=== PATIENT | male | born 1945 | race Caucasian/White ===

== ENCOUNTER 2024-07-31 05:24 | Observation (INO) ==
--- NOTE | 2024-06-26 10:52 | PAT Medication Instructions ---
Medication Instructions Date of Service June 26, 2024 Home Medications Metamucil Gummy 1 gummy PO QAM apixaban 5 mg tablet (Eliquis) 5 mg PO QAM arformoterol 15 mcg/2 mL solution for nebulization 15 mcg inhalation [facility] budesonide 0.5 mg/2 mL suspension for nebulization 0.5 mg inhalation BID calcium 600 mg capsule 600 mg PO QAM famotidine 20 mg tablet 20 mg PO QAM folic acid 1 mg tablet 1 mg PO QAM furosemide 20 mg tablet 20 mg PO QAM hydroxychloroquine 200 mg tablet 400 mg PO QAM leflunomide 10 mg tablet 10 mg PO QAM multivitamin 1 tab PO QAM omeprazole 10 mg capsule,delayed release 10 mg PO QAM prednisone 10 mg tablet 10 mg PO QAM pyridoxine (vitamin B6) 100 mg tablet (Vitamin B-6) 100 mg PO QAM rosuvastatin 10 mg tablet 10 mg PO QAM zinc 50 mg tablet 50 mg PO DAILY ASK your prescriber and surgeon apixaban 5 mg tablet (Eliquis) 5 mg PO QAM(in order for spinal or epidural anesthesia, Eliquis needs to be stopped 72 hours/3 days before surgery. Please check if okay with doctor that prescribes this to you) leflunomide 10 mg tablet 10 mg PO QAM DO NOT take the morning of surgery Metamucil Gummy 1 gummy PO QAM calcium 600 mg capsule 600 mg PO QAM folic acid 1 mg tablet 1 mg PO QAM furosemide 20 mg tablet 20 mg PO QAM multivitamin 1 tab PO QAM pyridoxine (vitamin B6) 100 mg tablet (Vitamin B-6) 100 mg PO QAM zinc 50 mg tablet 50 mg PO DAILY Take morning of surgery With a small sip of water, OTHERWISE NOTHING TO EAT OR DRINK AFTER MIDNIGHT: arformoterol 15 mcg/2 mL solution for nebulization 15 mcg inhalation AMHS budesonide 0.5 mg/2 mL suspension for nebulization 0.5 mg inhalation BID famotidine 20 mg tablet 20 mg PO QAM hydroxychloroquine 200 mg tablet 400 mg PO QAM omeprazole 10 mg capsule,delayed release 10 mg PO QAM prednisone 10 mg tablet 10 mg PO QAM rosuvastatin 10 mg tablet 10 mg PO QAM Take evening before surgery arformoterol 15 mcg/2 mL solution for nebulization 15 mcg inhalation AMHS budesonide 0.5 mg/2 mL suspension for nebulization 0.5 mg inhalation BID Other Notes If you have any questions please call us at [phone] or [phone] or [phone] or [phone]
--- NOTE | 2024-07-01 10:58 | Anesthesiology Consultation ---
Date of Service July 01, 2024 Assessment & Plan (1) Encounter for pre-operative examination: - Infectious disease screening: Per assessment on 07/01/24- No known recent infectious disease contacts or current infectious disease symptoms. - Outpatient joint assessment: Pt currently scheduled for inpatient pathway. If surgeon requests review for outpatient joint pathway, patient is not recommended candidate for outpatient joint program from anesthesia standpoint based on available information. - Eliquis/Apixiban instructions: patient made aware that for neuraxial anesthesia, Eliquis/Apixaban needs to be held 72 hours prior to surgery. Patient voiced understanding/will check if okay with prescriber. - Pending: * Awaiting upcoming cardiology office visit ([facility], appt 07/09). * Awaiting surgeon-ordered PCP preop evaluation (Dr. Eri Kirk, appt 07/16). Chart Review Chart Review: Patient seen in Pre Admission Testing Teaching & Discussion Pre-Anesthesia Teaching/Discussion Notes: Instructed NPO after midnight before surgery,except medications with 15 cc of water. Medication instructions provided according to the PAT guidelines. History Surgery Operation Date: 07/31/24 07:00 Proposed Procedures p Right Total Knee Arthroplasty - Seth Clay MD Height/Weight Height: 6 ft Weight: 121.8 kg Allergies Allergy/AdvReac Type Severity Reaction Status Date / Time No Known Allergies Allergy Verified 06/20/24 11:01 Medications Home Medications Medication Instructions Recorded Confirmed Last Taken Metamucil Gummy 1 gummy PO QAM 06/20/24 06/20/24 Unknown apixaban 5 mg tablet (Eliquis) 5 mg PO QAM 06/20/24 06/20/24 Unknown arformoterol 15 mcg/2 mL solution 15 mcg inhalation [facility] 06/20/24 06/20/24 Unknown for nebulization budesonide 0.5 mg/2 mL suspension 0.5 mg inhalation BID 06/20/24 06/20/24 Unknown for nebulization calcium 600 mg capsule 600 mg PO QAM 06/20/24 06/20/24 Unknown famotidine 20 mg tablet 20 mg PO QAM 06/20/24 06/20/24 Unknown folic acid 1 mg tablet 1 mg PO QAM 06/20/24 06/20/24 Unknown furosemide 20 mg tablet 20 mg PO QAM 06/20/24 06/20/24 Unknown hydroxychloroquine 200 mg tablet 400 mg PO QAM 06/20/24 06/20/24 Unknown multivitamin 1 tab PO QAM 06/20/24 06/20/24 Unknown omeprazole 10 mg capsule,delayed 10 mg PO QAM 06/20/24 06/20/24 Unknown release pyridoxine (vitamin B6) 100 mg 100 mg PO QAM 06/20/24 06/20/24 Unknown tablet (Vitamin B-6) rosuvastatin 10 mg tablet 10 mg PO QAM 06/20/24 06/20/24 Unknown zinc 50 mg tablet 50 mg PO DAILY 06/20/24 06/20/24 Unknown Past Medical History Medical History Chronic obstructive pulmonary disease O2 2L HS + PRN (rare daytime use) Follows with Dr. Monroe Villalpando/KARO Jimenez GERD (gastroesophageal reflux disease) History of COVID-19 (2021) Hospitalized for 2 weeks ([facility])- PE, CHF and PNA > Eliquis, subsequent O2 2L HS + PRN History of pulmonary embolism 2021 (in setting of Covid infection) Hyperlipidemia Rheumatoid arthritis Sleep apnea CPAP with 2L O2 HS Exercise / Class Metabolic Activity III < 4 Walking/Shop/Light housework Past Surgical History Surgical History History of cataract surgery R/L History of ear surgery Right ear x4 Follows with ENT [facility], [place] History of tonsillectomy S/P TKR (total knee replacement) (05/01/13) Per records Past Anesthesia History No Hx of Anesthesia Complications and No Family Hx of Anesthesia Complications History of PONV No Hx of PONV and No Hx of Motion Sickness Social History Smoking Status: Former smoker Do You Dip or Chew Tobacco: No Smoking End Date: Quit 2013 Hx Alcohol Use: No Hx Substance Use: No substance use type: does not use Review of Systems Patient denies chest pain, shortness of breath, fever, chills, cough, wheezing, palpitations. Physical Exam Vital Signs BP 113/71 P 75 TEMP 98.2 SP02 95%RA RESP 16 Physical Decreased cervical extension range of motion. Full TMJ range of motion. TMD 3 finger breaths Mallampati Score III Dentition: partial upper, full lower denture Lungs: clear throughout to auscultation Cardiac: regular rate and rhythm, no murmurs noted Spine: normal Carotid arteries: negative bruit Extremities: no LE edema Lab Results Anesthesia Preop Results Results Anesthesia Widget: WBC 10.81 K/ul (4.8-10.8) H 07/01/24 Hgb 14.2 g/dl (14.0-18.0) 07/01/24 Hct 42.5 % (42.0-52.0) 07/01/24 Plt 235 K/uL (130-400) 07/01/24 Na 141 mmol/L (136-145) 07/01/24 K 4.9 mmol/L (3.5-5.1) 07/01/24 Cl 103 mmol/L (98-107) 07/01/24 CO2 33 mmol/L (21-32) H 07/01/24 BUN 23 mg/dl (6-23) 07/01/24 Creat 1.14 mg/dl (0.6-1.4) 07/01/24 Glucose Level 99 mg/dl (70-99(Fasting)) 07/01/24 PT 11.1 Seconds (9.0-12.0) 07/01/24 PTT 29 Seconds (21-31) 07/01/24 INR 1.0 (0.9-1.1) 07/01/24 Urine Color Yellow 07/01/24 Urine Appearance Clear (Clear) 07/01/24 Urine pH 5.0 (4.5-7.5) 07/01/24 Urine Specific Elizabeth 1.014 (1.000-1.030) 07/01/24 Urine Protein Negative (Negative) 07/01/24 Urine Glucose (UA) Negative (Negative) 07/01/24 Urine Ketones Negative (Negative) 07/01/24 Urine Blood Negative (Negative) 07/01/24 Urine Nitrite Negative (Negative) 07/01/24 Urine Bilirubin Negative (Negative) 07/01/24 Urine Urobilinogen Negative (Negative) 07/01/24 Urine Leukocyte Esterase Negative (Negative) 07/01/24 Blood Type A Negative 07/01/24 Antibody Screen NEGATIVE 07/01/24 Testing Electrocardiogram Date: 07/01/24 NSR at 71bpm. "Normal ECG" Chest X-Ray Date: 07/01/24 FINDINGS: Heart size and pulmonary vasculature are normal. No effusion or consolidation. IMPRESSION: No acute findings. Cervical Spine Date: 07/01/24 FINDINGS: There is a chronic calcification in the posterior soft tissues. Lower cervical spine is obscured by the shoulders. There is grade 1 anterolisthesis of C4 on 5 with flexion which reduces with extension. Visualized disc spaces are maintained. IMPRESSION: Mild translational motion at C4-5.
--- NOTE | 2024-07-31 05:13 | History & Physical Bridge Note ---
Date of Service July 31, 2024 History & Physical Bridge Note I have examined the patient, reviewed the History & Physical and in the interval since the performance of the History & Physical I have noted the following changes of clinical significance: no changes noted
[2024-07-31] MEDS: LR 60ML/HR IV SCH (06:05)
[2024-07-31] MEDS: LR 500ML BOLUS, THEN 15ML/HR IV SCH (06:05)
[2024-07-31] MEDS ORDERED: ROPIVACAINE 0.5% 5 MG/ML 30 ML VIAL ONE (06:25)
[2024-07-31] MEDS ORDERED: MIDAZOLAM HCL 1 MG/ML 2ML VIAL ONE (06:29)
[2024-07-31] MEDS ORDERED: PROPOFOL IV EMULSION 10 MG/ML 20 ML VIAL IV ONE ×2 (06:29→08:05)
[2024-07-31] MEDS ORDERED: fentaNYL citrate PF 100 MCG/2 ML VIAL ONE (06:29)
[2024-07-31] MEDS ORDERED: HYDROmorphone INJ 1 MG/ML SYRINGE IV PRN (06:59)
[2024-07-31] MEDS ORDERED: ATROPINE SULFATE 0.1 MG/ML 10ML SYR IV PRN (06:59)
[2024-07-31] MEDS ORDERED: ALBUTEROL 0.083% NEBU SOLN 3 ML VIAL INH PRN (06:59)
[2024-07-31] MEDS ORDERED: ONDANSETRON INJ 2 MG/ML 2 ML VIAL IV PRN ×2 (06:59→10:15)
[2024-07-31] MEDS ORDERED: KETOROLAC 30 MG/ML VIAL IV PRN (06:59)
[2024-07-31] MEDS ORDERED: ePHEDrine sulfate 50 MG/ML AMP IV PRN (06:59)
[2024-07-31] MEDS: ceFAZolin 3000MG 3,000 MG/72.5 ML BAG IV SCH (07:00)
--- OUTSIDE RECORDS SUMMARY | 2024-07-31 07:16 | External Medical Summary | Continuity of Care Document ---
Author Name Unknown Organization [id number] Address [address] [place] [id number] Care Team Providers Care Shield Operator Name Role Phone Breann Ohara V Primary Care Physician [phone] [facility]counter [facility] [id number] Date(s): 07/08/24 - 07/08/24 [facility] [address] [id number] [facility] [address] [place] [id number] Encounter Diagnosis Primary osteoarthritis of right knee(Discharge Diagnosis) - 07/08/24 Discharge Disposition: Home or Self Care Attending Physician: CONCETTA Dalton, Chong Martinez Referring Physician: MD Danna, Seth Charles Encounter Type: Clinic Allergies, Adverse Reactions, Alerts No Known Allergies Medications Benefiber Start: 09/14/18 9:39:00 AM EDT Start Date: 09/14/18 Status: Ordered Repeat number: 1 Calcium 600+D oral tablet Start: 09/14/18 9:40:00 AM EDT Start Date: 09/14/18 Status: Ordered Repeat number: 1 Eliquis 5 mg oral tablet Start: 09/15/23 8:32:00 AM EDT, 1 tab, PO, Daily Start Date: 09/15/23 Status: Ordered Repeat number: 1 Euflexxa 10 mg/mL intra-articular solution Start: 09/15/23 9:23:00 AM EDT, 20 mg =, intra-articular, q7days, Disp# 6 mL, Note to Pharmacy: right knee Start Date: 09/15/23 Status: Ordered Quantity: 6.0 Unit: mL Repeat number: 1 famotidine Start: 09/15/23 8:33:00 AM EDT, 20 mg =, PO, Daily Start Date: 09/15/23 Status: Ordered Repeat number: 1 furosemide Start: 09/15/23 8:32:00 AM EDT, 20 mg =, PO, Daily Start Date: 09/15/23 Status: Ordered Repeat number: 1 hydroxychloroquine Start: 09/15/23 8:33:00 AM EDT, 400 mg =, PO, Daily Start Date: 09/15/23 Status: Ordered Repeat number: 1 multivitamin Start: 09/15/23 8:31:00 AM EDT, 1 tab, PO, Daily, zinc 50 mg Start Date: 09/15/23 Status: Ordered Repeat number: 1 omeprazole Start: 09/15/23 8:32:00 AM EDT, 10 mg =, PO, Daily Start Date: 09/15/23 Status: Ordered Repeat number: 1 rosuvastatin Start: 09/15/23 8:32:00 AM EDT, 10 mg =, PO, Daily Start Date: 09/15/23 Status: Ordered Repeat number: 1 Vitamin B12 Start: 09/14/18 9:40:00 AM EDT Start Date: 09/14/18 Status: Ordered Repeat number: 1 Vitamin D3 Start: 09/15/23 8:31:00 AM EDT, 1000 iu daily Start Date: 09/15/23 Status: Ordered Repeat number: 1 Vitamin D3 Start: 09/14/18 9:40:00 AM EDT Start Date: 09/14/18 Status: Ordered Repeat number: 1 Mental Status 07/08/24 Barriers to Learning one year None evide nt Mandatory Health Literacy Documentation Yes Health Literacy Communication Barriers N ever Primary Language Persian Problem List Condition Confirmation Course Effective Dates Status H ealth Status Informant History of left knee replacement Confirmed Active Left knee pain Confirmed Active Primary osteoarthritis of right knee Confirmed Active Right knee pain Confirmed Active Diagnosis Diagnosis Type Effective Dates Health Status Clinical Service Informant Primary osteoarthritis of right knee Discharge Diagnosis 07/08/24 Vital Signs Most recent to oldest [Reference Range]: 1 Height 175 cm (07/08/24 10:30 AM) Patient Weight 121.8 kg (07/08/24 10:30 AM) Body Mass Index 39.77 kg/m2 (07/08/24 10:30 AM) Temperature [36.5-37.9 DegC] 36.4 DegC *LOW* (07/08/24 10:30 AM) Heart Rate 84 bpm (07/08/24 10:30 AM) Blood Pressure 114/62mmHg (07/08/24 10:30 AM) Cuff Pulse Pressure 52 mmHg (07/08/24 10:30 AM) Social History Social History Type Response Smoking Status Former Smoker, quit > 1 yr Sex Male Sex Representation Male (finding) Pre-OP H & P * CONCETTA Dalton Cory D: PERFORM, MODIFY, MODIFY Event Display: Pre-OP H & P Authored Date: [id number] PRE-OPERATIVE HISTORY AND PHYSICAL Name: IVETTE RAMIREZ Patient Number: [id number] : 1945 Date of Service: 07/08/2024 PRE-OP Diagnosis: Right knee DJD Planned Procedure: Right total knee arthroplasty Chief Complaint: Right knee pain History of Present Illness (including history relevant to procedure): This 79-year-old male presents today with his , for his preoperative history and physical. He is scheduled to undergo a rightknee total knee arthroplasty on 07/31/[address] Clay. The patient has had right knee pain for over 2 years. The pain has become worse with time. He tried activity modification, physical therapy, OTC medications, and intra-articular injections without improvement. He elects to proceed with total knee arthroplasty on the right. There is a history of painful total knee arthroplasty on theleft done 11 years ago. He recently had a sudden increase in his pain in the left knee as well as an episode of swelling. He was found to have a left patellar fracture today. The rest of the hardware, including his button, appears stable. He denies any numbness or tingling in the right leg. He has difficulty with activities of daily living. Pain is worse with weightbearing. Preoperative imaging was obtained today. Review Of Systems: A total of 10 systems were reviewed and are significant only for below stated conditions. Family history: Significant for cancer. Parents are . Social history: The patient is . Retired. No tobacco use. No EtOH use. Past Medical History: Problems: History of pulmonary embolus Congestive heart failure COPD Sleep apnea Use of CPAP Easy bruising due to use of Eliquis GERD Rheumatoid arthritis Obesity BPH History of left knee replacement Primary osteoarthritis of right knee Left knee pain Procedure History Procedure Procedure Date Comments Left total knee arthroplasty History of cataract surgery Ear surgery Tonsillectomy 2013 Allergies and Sensitivities: NKA Current Home Meds: (Last Updated 07/08 10:28) apixaban (Eliquis 5 mg oral tablet) 5 mg PO Daily calcium-vitamin D (Calcium 600+D oral tablet) cholecalciferol (Vitamin D3) 1000 iu daily cholecalciferol (Vitamin D3) cyanocobalamin (Vitamin B12) famotidine 20 mg PO Daily furosemide 20 mg PO Daily hydroxychloroquine 400 mg PO Daily multivitamin 1 tab PO Daily zinc 50 mg omeprazole 10 mg PO Daily rosuvastatin 10 mg PO Daily sodium hyaluronate (Euflexxa 10 mg/mL intra-articular solution) 20 mg intra- articular q7days wheat dextrin (Benefiber) Vitals: Last Updated 07/08/24 10:30 Weights: Last Updated 07/08/24 10:30 Date Temp Pulse BP RR SpO2 FIO2 Date Wt(kg) Wt(lb) 07/08 10:30 36.4 84 114/62 95 07/08 10:30 121.8 268 07/08 10:30 121.8 268 24 Hr Tmax: 36.4 at 07/08 10:30 Initial Wt: 07/08 121.8 kg 268 lb Physical Exam: (relevant to the procedure, including heart and lung evaluation) General: Well-developed, well-nourished, elderly male, in no acute distress. Sitting in a chair. Alert and oriented. HEENT: Normocephalic, atraumatic. Eyes PERRLA, EOMI. Nares patent bilaterally without nasal drainage. Oropharynx with moist oral mucosa. Neck: No JVD. Cardiac: RRR. No MGR. Peripheral pulses are 2+. Lungs: Clear to auscultation bilaterally. No crackles, rhonchi, or wheezing. Good air movement. Abdomen: Obese. Bowel sounds present x 4. Soft nontender. No organomegaly. No masses. Extremities: Right knee evaluation reveals no intra-articular effusion. Obvious arthritic changes. Slight varus deformity. He lacks approximately 10 degrees of terminal extension. Flexion to 110 degrees. There is focal discomfort with palpation over the medial joint line as well as in the peripatellar area. Strength is 5/5 with good quad tone. Ambulating today with a limp using his cane. Stable collateral ligaments. No palpable defect or discomfort in the patellar tendon or quadriceps tendon. Limited patellar mobility. Neuro: Gross sensation is intact across the right leg by soft touch. Skin: Warm dry with good turgor. No rashes mild venous stasis changes are present around the ankle.No intra-articular effusion at the knee. No ecchymosis or erythema. Studies of radiology: radiographic imaging obtained today of the right knee was interpreted by me and read by radiology. He has end-stage DJD of the right knee. Periarticular osteophytes, subchondralsclerosis, and joint space narrowing, especially medial, are present. He is also noted to have a fracture of the left TKA patella. ASSESSMENT: Right knee DJD Plan: Approximately 35 minutes was spent with the patient and his reviewing operative procedure, postoperative recovery, physical therapy requirements, and medication use. Postoperative prescription for Percocet will be sent upon discharge from the hospital. Anticipate discharge to home with home health services for 2 weeks. He will then attend a outpatient therapy practice. He is already onEliquis. He will stop it 3 days prior to surgery. We will resume it the day after surgery. He has cardiology clearance next week and medical clearance the week after. He already has a walker. Preoperative lab work, chest x-ray, and EKG have already been completed. PDMP was checked and there are no c oncerning findings. He is currently asymptomatic of any COVID-19 or influenza symptoms. Postoperative follow-up appointment has been made with me for August 15. This dictation has been completed using [employer] text voice recognition software. Grammatical errors, omissions, insertions, and misspellings may be present due to the limitations of the software. Electronic Signature on File Electronically Reviewed/Signed by: Chong Dalton PA-C Author Signature Dt/Tm:07/08/2024 04:14 PM Division of Sports Medicine Electronically Reviewed/Signed by: Seth Clay MD Cosigner Signature Dt/Tm: 07/08/2024 06:35 PM Pie Chef for Clinical Affairs, [facility] Renée Professor in Orthopaedics [employer] Commissioner, [facility] CDS Patient Care team information Care Team Personnel Name: MD Ohara Julia V Position: Referring Member Role: Primary Care Provider Address: [address] [place] [address] [employer]: [phone] Insurance Providers Guarantor name: IVETTE RAMIREZ Mobile Game Day Information #: 2 Payer: [facility] Member Number: [id number] Policy Number: NA Group Number: NA Payer Identifier: [id number] Health Plan Information #: 1 Payer: MEDICARE Member Number: [id number] Policy Number: NA Group Number: NA Payer Identifier: [id number]
[2024-07-31] MEDS ORDERED: PHENYLEPHRINE 100MCG/ML 5ML SYR ONE (07:24)
[2024-07-31] MEDS: ORTHO JOINT ANESTHETIC ONE (07:28)
[2024-07-31] MEDS ORDERED: ONDANSETRON INJ 2 MG/ML 2 ML VIAL ONE (08:06)
[2024-07-31] MEDS: ROPIV 0.5% 246mg, Ketorolac 30mg, EPINEPHrine 0.5mg in NSS INFIL SCH (08:16)
[2024-07-31] MEDS: TRANEXAMIC ACID 1,000 MG x 1 **TOPICAL Use Intraop TOP SCH (08:17)
--- NOTE | 2024-07-31 08:34 | Post Operative Brief Note ---
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
--- NOTE | 2024-07-31 08:38 | Operative Report ---
Post Operative Report Pre & Post Diagnosis Operation Date: 07/31/24 07:00 <No data on this case meets the specified criteria> Osteoarthritis right knee with flexion deformity and grade 4 patellofemoral disease bipolar. Pre and postop diagnosis same I identified the patient and participated in the time-out.: Yes Procedure Operation Date: 07/31/24 07:00 <No data on this case meets the specified criteria> Cemented right total knee replacement Surgeon Seth Clay MD Death Claim Examiner Grge/Sha Estimated Blood Loss 20 Findings Consistent with Post-Op Diagnosis Severe patellofemoral disease grade 4 eburnated bone grade 4 medial compartment a chronic ACL insufficiency Fluids 1200 cc Specimens Bone pathology Drains None Complications None Indications Severe pain failed conservative management Description of Procedure After the patient was appropriate endophyte site verified consent verified antibiotics confirmed to be given he was then placed in the supine position on the OR table with the right lower extremity prepped and draped in his routine fashion. An anterior approach the knee was then made full-thickness flaps raised parapatellar arthrotomy performed. Synovectomy completed osteophytes resected along the margin of the femur. There was grade 4 disease patellofemoral joint severe grade 4 disease medial compartment. Chronic ACL ins ufficiency. Once everything was exposed the PCL was sacrificed and the knee subluxated the menisci resected. Patella was everted there was tight patellofemoral tissue it was released internally. Patella was then everted. This allowed good exposure. Distal femur was then entered and the distal femur resected 11 mm proximal tibia 4 mm the extension gap was good with a 5 or 6. Femur was sized to a 7 appropriate cutting block applied and the anterior posterior condylar chamfer cuts made a flexion gap checked it was excellent with a fiber 6. Box cut was then made a size 7 fit well. The hip tibia was sized to a size 6 appropriate cutting block applied and then the broaching and reaming carried out after the tibial cut was made and trial reduction with a 6 or 5 was excellent. The patella tracked well. The patella was everted was resected leaving 14 mm and a 41 button centered and drilled in the position. It tracked well. Ortho mix was then injected all about the knee the trial elements were then removed the knee soaked in TXA for 4 minutes and irrigated with Betadine for another 3 minutes and then the permanent cemented into position tibia femur patella in that order. After 12 minutes tourniquet was deflated minor bleeding points electrocautery. At 14 minutes and then was flexed trial spacer removed there is no cement removal required. Wound was irrigated with Pulsavac Betadine and the permanent liner seated in the knee reduced and closed at 40 degrees of flexion with #2 Vicryl 2-0 Vicryl and stainless to clips appropriate dressing applied the patient transferred to cover room in satisfactory addition he tolerated seizure well. EBL was 20 cc or less with when the tourniquet was deflated Summary of implants ATT UNE total knee replacement system 7 right femur 6 rotating platform tray 41 patella 7 x 5 mm rotating platform insert 2 bags of Palacos G cement EBL 20 cc or less crystalloid 1200 cc bone pathology pending DVT prophylaxis to start tomorrow. I attest to the content of the Intraoperative Record and any orders documented therein. Any exceptions are noted below.
--- NOTE | 2024-07-31 08:39 | Discharge Summary ---
Date of Service August 01, 2024 Admission HPI Per Admitting Provider Chronic right knee pain end-stage disease particular patellofemoral joint Principal Diagnosis Severe osteoarthritis right knee failed conservative management Discharge Data Allergies Allergy/AdvReac Type Severity Reaction Status Date / Time No Known Allergies Allergy Verified 07/31/24 05:45 Vaccinations None Consultations None Procedures Performed Operation Date: 07/31/24 07:00 <No data on this case meets the specified criteria> Cemented right total knee replacement Ordered Studies 07/31/24 05:00 US - OR guided needle placemen Routine Hospital Course (1) Status post right knee replacement: Total Time Total Time Spent Total Time Spent (In Minutes): 5 Discharge Plan Discharge Items Patient Disposition: Home - Home Health Services Reason For Visit: Right Knee Osteoarthritis Discharge Diagnosis: Status post right total knee replacement cemented Condition on Discharge: Good Activity: Per Instructions section Lifting: Wait until after follow-up appointment Bathing: Keep incision dry Sexual Activity: Wait until after follow-up appointment Exercise/Sports: Wait until after follow-up appointment Driving/Machine Use: No driving until cleared by Dr. Clay Weightbearing: Full weightbearing Non-emergency contact: Surgeon Call non-emergency contact if: you have any medication questions, your pain is not controlled, your temperature is above 101, your wound has increased redness, your wound has increased drainage and your wound pain has increased Follow-up/Referrals: PCP,COLTON [Physician] - Diet: Heart Healthy Addtl Attending Provider Instructions: New Medicine: * You will likely be taking one or more of these medications: 1. Percocet - Take, as directed, when you need it, every four to six hours to control your pain. 2. Iron Sulfate - Take 1x each day for the month after surgery to help you replace the blood lost during surgery. 3. Eliquis - Thins your blood to lessen the chance of forming a blood clot. * The most common side effects of pain medicine and iron are nausea and constipation. If nausea or constipation is too much of a problem or if you have any questions about your new medicines or doses, call [facility] at . We will try to help you manage these issues. "VERY IMPORTANT TO READ AND REVIEW" Blood Clots and Blood Thinning Medicine: * You are given Eliquis during the immediate post-operative period to lessen the risk of blood clots forming in your legs and/or lungs. It is usually given for 4 weeks after surgery. Pain: * The immediate post-operative period after knee replacement surgery is often quite painful. * You are given a prescription for pain medicine. You should take it, as directed, when you need it, especially before physical therapy and before going to bed. Pain that interferes with sleep is very common and can last several months. * You will likely need pain medicine for the first four to six weeks. It will not stop all of the pain. The pain will lessen and as you feel better, you may change to milder pain medicine such as Tylenol. * The most common side effects of pain medicine are nausea and constipation, so don't take more than you need. Physical Therapy: * You will have physical therapy two or three times each week for four to six weeks after your surgery in order to regain your knee range of motion and to retrain your knee to work properly. * It is just as important to make sure you are getting your knee perfectly straight as it is to regain your knee bend. * Taking a pain pill an hour before therapy can help you have a more productive and comfortable therapy session if needed. Home Exercise: * You were shown a series of exercises (heel props, heel slides, etc.) in the hospital. Do these exercises three to four times each day including the exercises you were shown in physical therapy. Walking: * Get up and walk several times each day. For the first four weeks, try not to stand or walk for more than one hour at a time. If you do stand or walk for more than one hour, you will not hurt anything, but your knee and leg will likely swell. * As you feel comfortable, you may change from the walker or crutches to a cane and then to independent walking. SELF CARE INSTRUCTIONS AFTER TOTAL KNEE REPLACEMENT A. You may need to continue a physical therapy program after discharge from the hospital. There are several options available to you. Your doctor will assist you in selecting the best one for you. 1. An out-patient facility 2 to 3 times a week for therapy or home therapy. 2. Continue working on all exercises taught to you in the hospital. Your goals should be to increase bending of your knee to 90 degrees and beyond and to fully straighten your knee. B. You may progress at your own pace from walking with a walker or crutches to a cane; then to no assistive devices. C. Make walking a part of your daily routine. Be up as much as comfortable with rest periods throughout the day. Rest with leg elevation is very important. Use the ice wrap frequently for the first 3-4 weeks. D. There are no restrictions on activities. You may ride in a car, shop, participate in drafter directional survey and all social activities. E. Wear the long elastic stockings (FRIDA hose) 20 hours a day for six weeks after surgery. They can be removed several times a day for laundering and for a shower. F. Do not place a pillow behind your knee when resting. A pillow at your ankle is okay. G. You may return to previous diet. VERY IMPORTANT TO READ AND REVIEW A. Take Eliquis (blood thinning medication) as directed by your doctor. B. There are a few signs you need to watch for after you are home. Call [facility] if you notice any of the followin. Increased severe knee pain. Some pain is expected especially when you exercise. 2. Increased swelling in your leg or knee; pain or swelling of the calf muscle in either lower leg. 3. Any fluid drainage from the incision. 4. Shortness of breath or chest pain. C. Please call [facility] at if you have any concerns or questions about your operation or recovery. The doctor or his nurse will return your call promptly. D. You must take antibiotics before dental work, bladder, bowel or other surgery. Call the office to obtain a prescription at least 2 days prior to your appointment. * CALL IF INCREASED PAIN, REDNESS, DRAINAGE OR FEVER GREATER THAT 101. * Sutures should be removed 12-14 days after surgery unless you are on chronic steroids, then it will be 14-18 days after surgery. Call your doctor if: * Temperature above 101 degrees F. * Pain not relieved by pain medicine ordered. * Increased drainage or redness from incision. * Notify your doctor with any questions or concerns. MEDICATIONS: * Please take your prescriptions as instructed at your pre-op appointment and/or see medication discharge instructions listed above. * If concerns develop, call your physician's office at . SPECIAL CARE INSTRUCTIONS: * Ice/Elevate as instructed. * Keep dressing clean, dry, intact. * Your surgical extremity may be discolored due to prepping agents used on the skin. A bluish-green tint is a normal variant and should not cause alarm. Call your doctor at [phone] if: * Temperature above 101 degrees * Pain not relieved by pain medicine ordered * There is increased drainage or redness from any incision * You have any unanswered questions, problems or concerns. FOLLOW UP VISIT: * If not already scheduled, please call the office at to schedule a follow-up appointment. Pending Studies at Discharge: Yes Studies:: bone pathology Stand-Alone Forms: My [facility] [employer], Smoking Cessation Medications and DC Order Prescriptions: No Action multivitamin Tablet 1 tab PO QAM calcium 600 mg Capsule 600 mg PO QAM famotidine 20 mg Tablet 20 mg PO QAM omeprazole 10 mg Capsule,Delayed Release(Dr/Ec) 10 mg PO QAM zinc 50 mg Tablet 50 mg PO DAILY furosemide 20 mg Tablet 20 mg PO QAM pyridoxine (vitamin B6) [Vitamin B-6] 100 mg Tablet 100 mg PO QAM hydroxychloroquine 200 mg Tablet 400 mg PO QAM rosuvastatin 10 mg Tablet 10 mg PO QAM Eliquis 5 mg Tablet 5 mg PO QAM budesonide 0.5 mg/2 mL Suspension For Nebulization 0.5 mg INHALATION BID arformoterol 15 mcg/2 mL Solution For Nebulization 15 mcg INHALATION AMHS Metamucil Gummy 1 gummy PO QAM folic acid 1 mg Tablet 1 mg PO QAM Admission Data Admit Date/Time: 07/31/24 08:50 Attending Provider: Seth Clay Admit Provider: Seth Clay Primary Care Provider: Eri Kirk
--- NOTE | 2024-07-31 08:39 | Orthopedic Progress Note ---
Date of Service July 31, 2024 Orthopedic Progress Note Underwent cemented right total knee replacement tolerated well denies chest pain shortness of breath fever chills nausea vomiting or headache. Vital signs are stable he is afebrile. Neurovascular check limited by spinal. X-ray pending. Family contacted.
--- NOTE | 2024-07-31 08:44 | Operative Report ---
Post Operative Report Pre & Post Diagnosis Operation Date: 07/31/24 07:00 Pre-Op Diagnosis: Right Knee Degenerative Joint Disease Post-Op Diagnosis: Right Knee Degenerative Joint Disease I identified the patient and participated in the time-out.: Yes Procedure Operation Date: 07/31/24 07:00 Actual Procedures p Right Total Knee Arthroplasty(Right) - Seth Clay MD Surgeon LUZ Clay MD Licensed Practical Nurse Greg/Sha HYLTON Estimated Blood Loss 20 Findings Consistent with Post-Op Diagnosis see operative report Specimens see operative report Drains none Complications none Disposition Accompanied Patient To Recovery: Yes Indications This 79 year old male presented to the office with complaints of persisting right knee pain. He had tried conservative care measures without improvement. He elected to proceed with surgical intervention after being educated about potential risks and outcomes. Preoperative imaging was obtained. Description of Procedure The patient was administered a spinal anesthetic and then taken to the operating room where he was given sedation. He was prepped and draped in the usual sterile fashion. Please see Dr. Clay's operative report for specifics of the procedure. I was present for the entire case from initial patient positioning through final wound closure. Assistance was provided in tissue retraction, hemostasis, trial implant placement, final implant placement, and final wound closure. The patient was taken to the recovery room in satisfactory condition. I attest to the content of the Intraoperative Record and any orders documented therein. Any exceptions are noted below.
--- NOTE | 2024-07-31 08:44 | Operative Report ---
Post Operative Report Pre & Post Diagnosis Operation Date: 07/31/24 07:00 Pre-Op Diagnosis: Right Knee Degenerative Joint Disease Post-Op Diagnosis: Right Knee Degenerative Joint Disease I identified the patient and participated in the time-out.: Yes Procedure Operation Date: 07/31/24 07:00 Actual Procedures p Right Total Knee Arthroplasty(Right) - Seth Clay MD Surgeon Seth Clay MD Slate Mixer Greg/Sha Estimated Blood Loss 20 Findings Consistent with Post-Op Diagnosis Specimens Right knee bone pathology Description of Procedure Patient was brought to the operative suite where he underwent sedation after undergoing spinal anesthesia preoperatively. Right lower extremity was prepped and draped in the usual sterile fashion. A surgical timeout was performed. The patient underwent a right total knee arthroplasty. Please see Dr. Clay's operative report for full details. I was present and assisted with patient positioning, limb positioning, surgical approach, soft tissue retraction, hemostasis, hardware implantation, wound closure, postoperative dressing placement. Patient was taken to the recovery room in stable condition I attest to the content of the Intraoperative Record and any orders documented therein. Any exceptions are noted below.
--- NOTE | 2024-07-31 09:00 | XRay Report ---
XR knee RT 1 or 2V routine CLINICAL HISTORY: S/P R TKA COMPARISON: 07/08/2024 FINDINGS: Right knee prosthesis shows no hardware complication. There is expected soft tissue gas. S kin maico are present. IMPRESSION: Unremarkable postoperative exam. ACT 112: Negative or not required by law. Electronically signed by: Morro Beltran M.D. 07/31/2024 8:58 AM
[2024-07-31] MEDS: VANCOMYCIN HCL 1,000 MG/270 ML BAG IV STA (09:24)
[2024-07-31] MEDS ORDERED: bisacodyL 10 MG SUPP PR PRN (10:15)
[2024-07-31] MEDS ORDERED: HYDROmorphone INJ 0.5 MG/0.5 ML SYR IV PRN (10:15)
[2024-07-31] MEDS ORDERED: TAMSULOSIN HCL 0.4 MG CAP PO PRN (10:15)
[2024-07-31] MEDS ORDERED: MAGNESIUM HYDROXIDE SUSP 30 ML UDC PO PRN (10:15)
[2024-07-31] MEDS ORDERED: diphenhydrAMINE 50 MG/ML VIAL IV PRN (10:15)
[2024-07-31] MEDS ORDERED: METOCLOPRAMIDE HCL INJ 5 MG/ML 2 ML VIAL IV PRN (10:15)
[2024-07-31] MEDS ORDERED: NALOXONE HCL 0.4 MG/1 ML VIAL/CARP IV PRN (10:15)
--- NOTE | 2024-07-31 10:44 | Anesthesiology Progress Note ---
Date of Service July 31, 2024 Anesthesia Post Procedure Vital Signs Vital Signs: Temp Pulse Pulse Resp BP Pulse Ox O2 Del Method 07/31/24 10:15 36.5 C 65 18 106/65 93 Nasal Cannula 07/31/24 09:55 65 12 105/63 93 Nasal Cannula 07/31/24 09:45 68 12 105/54 L 93 Nasal Cannula 07/31/24 09:30 68 17 120/58 L 89 L Nasal Cannula 07/31/24 09:20 68 17 100/59 L 92 Nasal Cannula 07/31/24 09:10 65 17 107/58 L 94 Oxymask 07/31/24 09:00 67 15 108/55 L 93 Oxymask 07/31/24 08:50 66 17 101/68 94 Oxymask 07/31/24 08:42 36.0 C L 72 14 90/46 L 91 Oxymask 07/31/24 05:52 Nasal Cannula 07/31/24 05:51 36.9 C 86 20 144/80 H 92 Nasal Cannula O2 Flow Rate 07/31/24 10:15 2 07/31/24 09:55 2 07/31/24 09:45 2 07/31/24 09:30 2 07/31/24 09:20 2 07/31/24 09:10 2 07/31/24 09:00 4 07/31/24 08:50 4 07/31/24 08:42 8 07/31/24 05:52 2 07/31/24 05:51 2 Transfer of Care Handoff Completed per policy Notes Mental Status: alert / awake / arousable Patient Amnestic to Procedure: Yes Nausea / Vomiting: adequately controlled Pain: adequately controlled Airway Patency, RR, SpO2: stable & adequate BP & HR: stable & adequate Hydration State: stable & adequate Neuraxial Anesthesia: was administered and sensory block is resolving Anesthetic Complications: no major complications apparent
[2024-07-31] MEDS: KETOROLAC TROMETHAMINE 15 MG/ML VIAL IV SCH (10:55)
[2024-07-31] MEDS: SODIUM CHLORIDE 0.9% 1,000 ML IV SCH (10:59)
[2024-07-31] MEDS: DOCUSATE SODIUM 100 MG CAP PO SCH (11:11)
[2024-07-31] MEDS: HYDROXYCHLOROQUINE SULFATE 200 MG TAB PO SCH (11:12)
[2024-07-31] MEDS: FUROSEMIDE 20 MG TAB PO SCH (11:12)
[2024-07-31] MEDS: MULTIVITAMIN TAB PO SCH (11:12)
[2024-07-31] MEDS: FOLIC ACID 1 MG TAB PO SCH (11:13)
[2024-07-31] MEDS: PYRIDOXINE HCL 50 MG TAB PO SCH (11:13)
[2024-07-31] MEDS: ROSUVASTATIN CALCIUM 10 MG TAB PO SCH (11:13)
[2024-07-31] MEDS: NON-FORMULARY MEDICATION (Zinc 50 mg Tablet) PO SCH (11:24)
[2024-07-31] MEDS: oxyCODONE HCL IR 5 MG TAB (IMMEDIATE RELEASE) PO PRN (12:42)
[2024-07-31] MEDS: ACETAMINOPHEN 500 MG TAB PO SCH (14:06)
[2024-07-31] MEDS: ceFAZolin 2000MG 2,000 MG/15 ML SYR IV SCH (15:16)
[2024-07-31] MEDS: ASCORBIC ACID 500 MG TAB PO SCH (16:54)
[2024-07-31] MEDS: FERROUS GLUCONATE 324 MG TAB PO SCH (16:55)
--- NOTE | 2024-07-31 17:54 | Orthopedic Progress Note ---
Date of Service July 31, 2024 Assessment & Plan Admission and Anticipated Discharge Date Admission Date: July 31, 2024 Orthopedic Progress Note Received Neoga text regarding concern for foot being numb. He has baseline neuropathy. Examination reveals active dorsi and plantarflexion inversion eversion of the foot. Has protective sensation of the foot. Pulses intact. There is no sign of any pain with passive stretch there is no compartment syndrome. Was able to stand the patient up and walk 5 or 6 steps forward and backward. Is able to turn and pivot and out of bed. He needs to have his knee immobilizer on for this. He should be able to get up again with the assist of 2 until he gets more confident. Please do not medicate immediately prior to getting up and ambulating. Wound dressing clean dry and intact. Has excellent straight leg raises excellent ankle dorsi and plantarflexion intact pulse. Protective sensation. Continue postop care pathway for total knee replacement.
[2024-07-31] MEDS: BUDESONIDE 0.5 MG/2 ML VIAL (PULMICORT) INH SCH (20:08)
[2024-07-31] MEDS: FORMOTEROL 20 MCG/2 ML VIAL INH SCH (20:08)
[2024-07-31] MEDS: SENNA 8.6 MG TAB PO SCH (20:33)
[2024-07-31] MEDS ORDERED: FORMOTEROL 20 MCG/2 ML VIAL INH SCH (21:00)
[2024-08-01 04:43] VITALS: O2SAT 94
--- NOTE | 2024-08-01 06:44 | Orthopedic Progress Note ---
Date of Service August 01, 2024 Assessment & Plan Admission and Anticipated Discharge Date Admission Date: July 31, 2024 Orthopedic Progress Note Postop day #1 status post right total knee replacement. Patient notes that his leg feels much better. Does not have the tingling that he was worried about last night. Vital signs are stable he is afebrile. Neurovascular check femoral sciatic nerve is intact. He has good active extension and flexion of the toes the ankle inversion eversion protective sensation. Toes are pink and warm. Wound dressing clean dry and intact. Calves nontender. A.m. labs are pending. Assessment doing well PT OT today discharge after that. Initiate anticoagulation today.
[2024-08-01 06:58] LABS: Hematocrit (blood only) 35.6 % (42.0-52.0); Mean Corpuscular Hemoglobin 30.4 pg (25.0-34.0); Mean Corpuscular Hgb Conc 33.7 g/dL (32.0-36.0); Mean Corpuscular Volume 90.1 fL (80.0-100.0); Mean Platelet Volume 10.2 fL (9.4-12.4); Platelet Count 197 K/uL (130-400); RDW Coefficient of Variation 12.9 % (11.5-14.5); RDW Standard Deviation 42.8 fL (36.4-46.3); Red Blood Count 3.95 M/uL (4.70-6.10); White Blood Count 10.59 K/ul (4.8-10.8)
[2024-08-01] MEDS: APIXABAN 2.5 MG TAB PO SCH (07:13)
[2024-08-01] MEDS: dexAMETHasone 10 MG in SYRINGE 0 ML IV SCH (07:14)
[2024-08-01 07:31] LABS: Anion Gap 1 (3-11); Blood Urea Nitrogen 25 mg/dl (6-23); Calcium 8.3 mg/dl (8.6-10.3); Carbon Dioxide 32 mmol/L (21-32); Chloride 104 mmol/L (98-107); Creatinine Clr Calc Pharmacy 66.9 ml/min; Glucose 102 mg/dl (70-99(Fasting)); Sodium 137 mmol/L (136-145)
[2024-08-01 07:41] VITALS: BP 125/77; TEMP 97.9
[2024-08-01 07:49] VITALS: PULSE 68; RESP 18
--- NOTE | 2024-08-01 09:09 | Orthopedic Progress Note ---
Date of Service August 01, 2024 Assessment & Plan (1) Status post right knee replacement: Plan: The patient's dressings were changed today by me. FRIDA stocking was applied. Importance of using the knee immobilizer today and tomorrow was discussed. He can discontinue it entirely on Monday morning. Ice and elevate the knee frequently to reduce pain and swelling Uses walker when ambulating. Weight-bear as tolerated on the right leg. Written discharge instructions were provided. Prescriptions for Percocet and Eliquis 2.5 mg were sent to his pharmacy. He will use the 2.5 twice daily instead of 5 mg daily. Start home health tomorrow. The dressing should be left in place at least through Monday. It can be changed as needed for soiling after that. Follow-up in the office in 2 weeks as scheduled with me for staple removal. Admission and Anticipated Discharge Date Admission Date: July 31, 2024 Subjective This 79-year-old male is seen today in his room. He is 1 day status post right total knee arthroplasty. He states he is doing fine this morning. Denies any chest pain, nausea, vomiting, or abdominal pain. He has his usual shortness of breath associated with his COPD. No increased shortness of breath. He is currently wearing oxygen by nasal cannula at 2 L. He states the numbness that he had in his leg yesterday has resolved. No other complaints. Review of Systems Review of Systems: Unchanged from yesterday. Physical Exam Physical Exam: General: Well-developed, well-nourished, elderly male, in no acute distress. Laying in bed. Alert and oriented. Wearing his oxygen by nasal cannula Skin: Warm and dry with good turgor. Postsurgical dressings are in place on the right leg. Upon removal, maico are in place. Wound edges are well- approximated. No erythema or warmth. Expected postoperative edema. Minimal ecchymosis. He has scant dried blood on the inner dressings. There is no active bleeding from his surgical site. Musculoskeletal: The patient is able to set his quad. Intact motor function to the ankle and toes. He has full terminal extension of the knee. He is able to perform a straight leg raise. Flexion to around 30 degrees, limited by discomfort. Neurologic: Gross sensation is intact across the right leg by soft touch. He has intact sensation to the foot. Peripheral pulses are 2+ at both tibialis posterior and dorsalis pedis. Results & Data Vital Signs (Past 12 Hours) Vital Signs Temp Pulse Pulse Pulse Resp BP Pulse Ox 08/01/24 07:48 68 18 94 08/01/24 07:40 36.6 C 69 16 125/77 94 08/01/24 04:37 37.1 C 73 20 168/72 H 94 08/01/24 02:58 70 14 97 07/31/24 22:48 36.5 C 69 18 149/75 H 97 07/31/24 22:45 66 18 96 O2 Del Method O2 Flow Rate 08/01/24 07:48 Nasal Cannula 2 08/01/24 07:40 Nasal Cannula 2 08/01/24 04:37 Nasal CPAP 08/01/24 02:58 2 07/31/24 22:48 Nasal Cannula 2 07/31/24 22:45 2 Laboratory Results CBC obtained this morning shows a white count of 10.59. H&H of 12.0 and 35.6. Platelets 197,000. Sodium 137 potassium 5.1 CO2 32. BUN of 25 with creatinine 1.19. Glucose is fine this morning at 102.
== END 2024-08-01 10:51 | disposition home health service (06) ==
LOC: ASU 05:24 → 3E 05:24